=== PATIENT | female | born 1990 | race Caucasian/White ===

== ENCOUNTER 2024-05-22 11:52 | Emergency (ER) | payer MEDICAID, SELFPAY ==
[2024-05-22 11:54] VITALS: BP 127/65; PULSE 125; RESP 20; TEMP 36.7; O2SAT 100; BMI 35.3
--- NOTE | 2024-05-22 12:09 | EX.ED.UPPERE ---
HPI History of Present Illness Chief Complaint: Upper Extremity Injury Informant: patient Narrative Narrative: 34-year-old female presenting to the emergency room with swollen right hand. Patient states that about 48 hours ago she relapsed and injected into her right dorsal base of thumb. She states that she missed the vein and now has swelling of the hand. She still notes range of motion. No fevers. She denies any redness or red streaking. She has been clean for over a year. She is due to get Invega tomorrow. She states that this usually helps her greatly with her craving. She states that she is in counseling. [facility] Medical History Drug abuse Home Medications ?Medication ?Instructions ?Recorded ?Last Taken ?Type cephalexin 500 mg capsule 500 mg PO Q6 #20 CAPSULES 05/22/24 Unknown Rx paliperidone palmitate 234 mg/1.5 234 mg IM Q30D 05/22/24 Unknown History mL intramuscular syringe (Invega Sustenna) Allergy/AdvReac Type Severity Reaction Status Date / Time No Known Allergies Allergy Verified 09/26/16 07:33 Social History Smoking Status: Current every day smoker tobacco type: cigarettes ROS ROS ED Constitutional Constitutional ED: Denies chills or weight loss Eyes Eyes: Denies change in vision or diplopia ENT ENT ED: Denies ear pain, rhinorrhea or sore throat Cardiovascular Cardiovascular: Denies chest pain, orthopnea, palpitations or racing heartbeat Respiratory/Chest Respiratory/Chest: Denies cough, dyspnea or orthopnea Gastrointestinal Gastrointestinal: Denies abdominal pain, diarrhea, nausea or vomiting Genitourinary Genitourinary ED: Denies dysuria, hematuria or urinary frequency Musculoskeletal Musculoskeletal: Reports other Details: Swelling of right hand ; Denies arthralgias or myalgias Integumentary Denies abscess or rash Neurologic Neurologic: Denies headache(s) or weakness Psychiatric Psychiatric: Reports other Details: Aretha history ; Denies anxiety, depression, suicidal ideation or suicidal thoughts Endocrine Endocrinology: Denies polydipsia, polyphagia or polyuria Allergic/Immunologic Allergic/Immunologic ED: Denies mouth swelling, tongue swelling or urticaria EXAM Physical Exam Const Vital Signs: 05/22/24 11:54 Temperature 98.1 F Temperature Source Temporal Pulse Rate 125 H Respiratory Rate 20 H Blood Pressure 127/65 H Blood Pressure Mean 85 Pulse Ox 100 Oxygen Delivery Method Room Air Positive well nourished and well developed General Appearance ED: well developed and NAD HEENT Reports normocephalic, head/scalp atraumatic and moist mucous membranes Eyes PERRL and EOMs intact bilaterally Neck no lymphadenopathy, supple and no JVD Resp normal respiratory effort and clear to auscultation bilaterally Cardio regular rate, regular rhythm and no murmurs GI normal to inspection, nondistended, normoactive bowel sounds and non-tender Palpation: soft Back/Spine no CVA tenderness and normal ROM Extremity Extremity Narrative: Dorsum of the right hand is mildly erythema or increased warmth. Venipuncture site does not appear infected. There is no lymphangitic streaking. Distally the fingers show less than 2-second capillary refill. I do not appreciate any evidence of tenosynovitis. General Extremety ED: Negative for edema General Extremity: Negative for edema Neuro oriented x3 and CN's II-XII intact bilaterally Sensorium / Orientation: alert Motor Exam: strength 5/5 throughout Psych mental status grossly normal Mood & Affect: tearful; Negative for depressed Skin no rashes or lesions noted and no wounds MDM MDM MDM Narrative Medical decision making narrative: Differential diagnosis includes but not limited to tenosynovitis cellulitis extravasation of clinical gout pseudogout sprain tendinitis My independent interpretation the plain films of the right hand is soft tissue swelling. There is a needlelike foreign body on the volar aspect of the wrist more proximal to where she injected. She states that this has been there for over a year. She was supposed to follow-up with surgery but did not would like a referral for that. Clinically I think it is a local reaction to extravasation of what ever she was injecting. She appears neurovascularly intact we can cover her with an antibiotic wrist splint for comfort would recommend heat. Monitor for worsening symptoms return if worsening or concerns History & Record Review Discussion w/independent historian: Patient Discharge Plan Triage Chief Complaint: Upper Extremity Injury ED Provider: Cesar Zuñiga Dx/Rx/DC Orders Clinical Impression: Extravasation of other vesicant agent, initial encounter Prescriptions: New cephalexin 500 mg capsule 500 mg PO Q6 Qty: 20 0RF No Action Invega Sustenna 234 mg/1.5 mL syringe 234 mg IM Q30D Primary Care Provider: Care Physician,No Primary Referrals: Kevin Dodd MD [Med Staff - Active Staff] - (For foreign body evaluation in the wrist) NOT,DEFINED [Non-Staff] - Print Language: Amharic Disposition Disposition: Home, Self Care Discharge Date/Time: 05/22/24 12:45
--- NOTE | 2024-05-22 12:13 | RAD_ITS ---
INDICATION: swelling EXAMINATION/TECHNIQUE: X-RAY - RIGHT XR Hand Min 3 Views 3 VIEWS COMPARISON: No relevant prior comparison study available FINDINGS: SOFT TISSUES: No soft tissue swelling or gas. No radiopaque foreign body. BONES/JOINTS: No acute fracture or subluxation.. Normal alignment. Preservation of the joint space.. No sclerotic or destructive changes observed. RAD/Hand Min 3 Views IMPRESSION: No evidence of acute fracture or dislocation. Electronically Signed: Kyaw Gupta MD at 13:01 EST ,
== END 2024-05-22 12:45 | disposition home or self-care (01) ==
PROVIDERS: Emergency Provider Emergency Medicine; Visit Provider Emergency Medicine
DX: F17.210 Nicotine dependence, cigarettes, uncomplicated (principal)
CPT/HCPCS: 73130; 99282; A4216